=== PATIENT | female | born 1960 | race Caucasian/White ===

== ENCOUNTER 2020-03-01 07:51 | Day surgery (SDC) | payer OTHER ==
[2020-03-04] MEDS ORDERED: MONT10T PO (10:14)
[2020-03-04] MEDS ORDERED: Lisinopril-Hct1 EAC4 PO (10:14)
[2020-03-04] MEDS ORDERED: HYDR1TAB94 PO (10:14)
[2020-03-04] MEDS ORDERED: QVAR REDIHALE10.6 G2 INH (10:15)
[2020-03-04] MEDS ORDERED: LEVALBUTEROL TA15 G1 INH (10:15)
== END 2020-03-01 22:55 | disposition home or self-care (01) ==
LOC: MOI US 07:51
DX: C50.312 Malignant neoplasm of lower-inner quadrant of left female breast (principal)
CPT/HCPCS: 19285; 77065

== ENCOUNTER 2020-03-06 07:51 | Day surgery (SDC) | payer OTHER ==
[~2020-03-06] VITALS: Ht 154.9 cm; Wt 64.8 kg
[~2020-03-06 07:51] MED LIST: HYDR1TAB94 PO; LEVALBUTEROL TA15 G1 INH; Lisinopril-Hct1 EAC4 PO; MONT10T PO; QVAR REDIHALE10.6 G2 INH
--- NOTE | 2020-03-06 16:06 | NUR ---
Patient up to Ambulate independently. Gait steady. Discharge instructions reviewed with patient. Patient verbalizes understanding. Copy given to patient to take home. Patient States Post-Procedure ride home has been arranged. Discharged via wheelchair to private car for ride home. BREAST BINDER IN PLACE, NO DRESSINGS OR GAUZE OVER INCISIONS. ALL BELONINGS RETURNED TO PATIENT.
--- NOTE | 2020-03-07 10:14 | NUR ---
03/07/20 1014 Kandi Bentley VERIFICATIONS, CHART AUDITS.
== END 2020-03-06 12:00 | disposition home or self-care (01) ==
LOC: RAD 07:51 → ORSCMMR 07:51 → RAD 08:00 → ORSCMMR 09:36 → RAD 09:36 → ORSCMMR 12:00 → RAD 12:00
PROVIDERS: Surgery
PROC: 0HBU0ZZ Excision of Left Breast, Open Approach (ICD-10-PCS; principal; 2020-03-06 10:00)
PROC: 07B60ZX Excision of Left Axillary Lymphatic, Open Approach, Diagnostic (ICD-10-PCS; principal; 2020-03-06 10:00)
DX: C50.912 Malignant neoplasm of unspecified site of left female breast (principal); F41.9 Anxiety disorder, unspecified; F32.9 Major depressive disorder, single episode, unspecified; Z17.0 Estrogen receptor positive status [ER+]; Z79.51 Long term (current) use of inhaled steroids; Z79.899 Other long term (current) drug therapy; Z90.710 Acquired absence of both cervix and uterus; Z87.891 Personal history of nicotine dependence
CPT/HCPCS: 38792; 88304; 88305; 88307; 88341; 88342; A9270-GY; A9520; J0690; J1885; J2250; J2405; J3010; J7120; Q9968

== ENCOUNTER 2020-04-19 09:08 | Day surgery (SDC) | payer OTHER ==
[~2020-04-19] VITALS: Ht 154.9 cm; Wt 65.9 kg
[~2020-04-19 09:08] MED LIST changes: +BECL25NI INH; +XOPENEX HFA15 GM INH
--- NOTE | 2020-04-19 09:49 | NUR ---
History, Chart, Medications and Allergies reviewed before start of procedure. Patient confirms NPO status and agrees with scheduled surgery. Patient reports completing Chlorhexadine shower X2 prior to admission to hospital. Patient States Post-Procedure ride home has been arranged with her [id number], Zohra.
--- NOTE | 2020-04-19 10:02 | NUR ---
Lungs clear T/O to Auscultation.
--- NOTE | 2020-04-19 13:00 | NUR ---
REPORT TO NICOLA BARON PEASANT DENIES PAIN OR NAUSEA
--- NOTE | 2020-04-19 13:03 | NUR ---
report from davi laws rn. assumed care of echo. vss, alert and oriented, denies concerns, wiating for call from radiology verifying xray.
--- NOTE | 2020-04-19 13:58 | NUR ---
PT UP TO THE BATHROOM AND ABLE TO DRESS SLEF. Patient up to Ambulate independently. Gait steady. Discharge instructions reviewed with patient. Patient verbalizes understanding. Copy given to patient to take home. PT RECEIVED MEDIPORT INFORMATION. Patient States Post-Procedure ride home has been arranged. Discharged via wheelchair to private car for ride home. ALL BELONINGS RETURNED TO PATIENT.
== END 2020-04-19 23:12 | disposition home or self-care (01) ==
LOC: ORSCMMR 09:08
PROVIDERS: Surgery
PROC: B5131ZA Fluoroscopy of Right Jugular Veins using Low Osmolar Contrast, Guidance (ICD-10-PCS; principal; 2020-04-19 11:30)
PROC: 05HM33Z Insertion of Infusion Device into Right Internal Jugular Vein, Percutaneous Approach (ICD-10-PCS; principal; 2020-04-19 11:30)
DX: C50.912 Malignant neoplasm of unspecified site of left female breast (principal); I10 Essential (primary) hypertension; Z87.891 Personal history of nicotine dependence; J45.909 Unspecified asthma, uncomplicated; Z79.899 Other long term (current) drug therapy
CPT/HCPCS: 77001; A9270-GY; C1788; J0690; J1100; J1642; J1885; J2250; J2405; J2704; J3010; J7120

== ENCOUNTER 2020-04-24 15:02 | Day surgery (SDC) | payer OTHER | END 2020-04-24 22:45 | disposition home or self-care (01) | LOC: RAD 15:02 | DX: I97.89 Other postprocedural complications and disorders of the circulatory system, not elsewhere classified (principal); C50.412 Malignant neoplasm of upper-outer quadrant of left female breast | CPT/HCPCS: 36598 ==

== ENCOUNTER 2020-04-26 06:50 | Inpatient (IN) | payer OTHER ==
[~2020-04-26] VITALS: Ht 165.1 cm; Wt 56.1 kg
[2020-04-26 07:25] LABS: BASOPHILS ABSOLUTE AUTO 0.01 K/mm3 (0.00-0.23); BASOPHILS PERCENT AUTO 0 % (0-2); EOSINOPHILS ABSOLUTE AUTO 0.01 K/mm3 (0.00-0.68); EOSINOPHILS PERCENT AUTO 0 % (0-6); Hematocrit 31.2 % (33.0-51.0); Hemoglobin 10.9 g/dL (11.5-16.0); IMMATURE GRAN ABSOLUTE AUTO 0.28 K/mm3 (0.00-0.10); IMMATURE GRAN PERCENT AUTO 3 % (0-1); LYMPHOCYTES ABSOLUTE AUTO 1.39 K/mm3 (0.84-5.20); LYMPHOCYTES PERCENT AUTO 15 % (21-46); MONOCYTES ABSOLUTE AUTO 0.66 K/mm3 (0.16-1.47); MONOCYTES PERCENT AUTO 7 % (4-13); Mean Corpuscular HGB Conc 34.9 g/dL (31.5-36.5); Mean Corpuscular Volume 92 fL (80-100); Mean Platelet Volume 9.2 fL (9.1-12.4); NEUTROPHILS ABSOLUTE AUTO 6.78 K/mm3 (1.96-9.15); NEUTROPHILS PERCENT AUTO 74 % (41-73); Platelet Count 329 K/mm3 (150-400); RDW Coefficient Variation 12.1 % (11.7-14.2); RDW Standard Deviation 40.5 fL (35.1-46.3); Red Blood Cell Count 3.41 M/mm3 (3.80-5.20); White Blood Cell Count 9.13 K/mm3 (4.00-11.30)
[2020-04-26 07:47] LABS: Ethanol (Alcohol), Blood, Med <3 mg/dL
[2020-04-26] MEDS ORDERED: Ondansetron Odt8 MG MM (07:52)
[2020-04-26] MEDS ORDERED: DEXA4 PO (07:53)
[2020-04-26] MEDS ORDERED: ZYPREXA2.5 MG PO (07:53)
[2020-04-26] MEDS ORDERED: FLUOXETINE HCL20 MG PO (07:54)
[2020-04-26] MEDS ORDERED: QVAR REDIHALE10.6 G2 INH (07:55)
[2020-04-26] MEDS ORDERED: HYDHCL25 PO (07:55)
[2020-04-26 08:00] LABS: Alanine Aminotransfer (ALT/SGP 39 U/L (12-78); Albumin, Blood 3.5 g/dL (3.4-5.0); Albumin/Globulin Ratio 1.2 (0.8-1.8); Alk Phos 59 U/L (50-136); Anion Gap 15 mmol/L (6-16); Aspartate Aminotrans (AST/SGOT 23 U/L (12-37); Bilirubin, Total 0.6 mg/dL (0.1-1.0); Blood Urea Nitrogen 12 mg/dL (8-24); Bun/Creatinine Ratio 23.6 (12.0-20.0); CO2, Blood 17 mmol/L (21-32); Calcium, Blood 8.1 mg/dL (8.5-10.1); Chloride, Blood 83 mmol/L (98-108); Creatinine, Blood 0.51 mg/dL (0.40-1.00); Glomerular Filtration Rate >60 (60-); Glucose, Blood 138 mg/dL (70-99); Potassium, Blood 3.6 mmol/L (3.5-5.5); Sodium, Blood 115 mmol/L (136-145); Total Protein, Blood 6.5 g/dL (6.4-8.2)
[2020-04-26 08:28] LABS: Source, Urine Clean Catch
[2020-04-26 08:36] LABS: Bilirubin, Urine Neg (Neg); Blood, Urine 2+ (Neg); Glucose Qualitative, Urine 1+ (Neg); Ketones, Urine 2+ (Neg); Leukocyte Esterase, Urine Neg (Neg); Nitrite, Urine Neg (Neg); Protein, Urine 2+ (Neg); Specific Gravity, Urine 1.025 (1.003-1.022); Urobilinogen, Urine NORM (Normal)
[2020-04-26 08:52] LABS: Appearance, Urine Clear (Clear); Color, Urine Yellow (P-Yellow)
[2020-04-26 09:01] LABS: Red Blood Cells, Urine 0-2 /hpf (0-2); White Blood Cells, Urine 0-2 /hpf (0-5)
[2020-04-26 09:02] LABS: Bacteria Mod /hpf; Squamous Epithelial Cells Few /hpf (Few)
[2020-04-26 09:03] LABS: Amorphous Mod (0-Heavy)
[2020-04-26 09:13] LABS: U Amphetamine Screen Not Detected; U Barbituate Screen Not Detected; U Benzodiazapine Screen Not Detected; U Buprenorphine Screen Not Detected; U Cannabinoids Screen Not Detected; U Cocaine Screen Not Detected; U Methadone Screen Not Detected; U Methamphetamine Screen Not Detected; U Opiates Screen Not Detected; U Oxycodone Screen Not Detected; U Phencyclidine Screen Not Detected; U Propoxyphene Screen Not Detected
--- NOTE | 2020-04-26 11:45 | NUR ---
ADMIT PT ARRIVES TO ICU 12 AT 1115 VIA ER BED. PT TRANSFERED TO ICU BED. PT IS LETHARGIC AND UNABLE TO ANSWER QUESTIONS OR FOLLOW COMMANDS. PT MAEW, PT PULLING AT LINES/TUBES. VITAL SIGNS STABLE. PT WITH NEW MEDIPORT TO RIGHT UPPER CHEST C/D/I. MEDIPORT ACCESSED. 3% SALINE INFUSING AT 20 ML/HR AT THIS TIME. SIMMONS IN PLACE WITH YELLOW URINE OUTPUT NOTED. PT WITH MULTIPLE BRUISES R/T FALL AT HOME. PT PLACED IN SBW RESTRAINTS DUE TO PULLING AT MEDIPORT ACCESS. WILL CONTINUE TO MONITOR.
[2020-04-26 13:17] LABS: Albumin, Blood 3.4 g/dL (3.4-5.0); Blood Urea Nitrogen 12 mg/dL (8-24); Bun/Creatinine Ratio 28.2 (12.0-20.0); CO2, Blood 23 mmol/L (21-32); Calcium, Blood 8.1 mg/dL (8.5-10.1); Chloride, Blood 84 mmol/L (98-108); Creatinine, Blood 0.43 mg/dL (0.40-1.00); Glomerular Filtration Rate >60 (60-); Glucose, Blood 109 mg/dL (70-99); Phosphorus, Blood 2.6 mg/dL (2.5-4.9); Potassium, Blood 3.3 mmol/L (3.5-5.5)
[2020-04-26 13:19] LABS: Anion Gap 10 mmol/L (6-16); Sodium, Blood 117 mmol/L (136-145)
[2020-04-26 14:32] LABS: Thyroid Stimulating Hormone 0.299 uIU/mL (0.360-4.800); Uric Acid, Blood 3.9 mg/dL (2.6-6.0)
--- NOTE | 2020-04-26 15:30 | NUR ---
DR. RICHARD PHONED AND UPDATED TO PT CURRENT STATUS AND LAB RESULTS. ORDERS GIVEN TO INCREASED 3% SALINE TO 30 ML/HR. LABS ORDERED FOR 1800 AND TO BE CALLED TO DR. RICHARD BY 1900. TOD MARTINEZ AWARE-PT SPOUSE AT BEDSIDE-HE TOO WAS UPDATED TO PT CURRENT STATUS, LABS, AND PLAN OF CARE BY TOD MARTINEZ.
[2020-04-26 15:39] LABS: Albumin, Blood 3.4 g/dL (3.4-5.0); Anion Gap 11 mmol/L (6-16); Blood Urea Nitrogen 12 mg/dL (8-24); Bun/Creatinine Ratio 27.3 (12.0-20.0); CO2, Blood 20 mmol/L (21-32); Chloride, Blood 85 mmol/L (98-108); Creatinine, Blood 0.44 mg/dL (0.40-1.00); Glomerular Filtration Rate >60 (60-); Glucose, Blood 115 mg/dL (70-99); Phosphorus, Blood 2.4 mg/dL (2.5-4.9); Potassium, Blood 3.4 mmol/L (3.5-5.5); Sodium, Blood 116 mmol/L (136-145)
--- NOTE | 2020-04-26 17:32 | NUR ---
SHIFT SUMMARY NO ACUTE CHANGES THIS SHIFT. PT HAS REMAINED LETHARGIC AND IS NOT ABLE TO ANSWER ANY QUESTIONS. PT OCCASIONALLY MOANS OUT WITH CARE. PT DOES NOT FOLLOW COMMANDS. SBW RESTRAINTS REMAIN IN PLACE. MEDIPORT REMAINS ACCESSED WITH 3% SALINE INFUSING AT 30 ML/HR. SIMMONS REMAINS IN PLACE, 24 HOUR URINE COLLECTION IN PROGRESS. SIMMONS DRAINAGE BAG ON ICE. PT WITH CLEAR ORANGE URINE OUTPUT NOTED. VITAL SIGNS HAVE REMAINED STABLE. PT ON ROOM AIR. WILL CONTINUE TO MONITOR AND REPORT OFF TO ONCOMING RN.
[2020-04-26 18:24] LABS: Magnesium, Blood 1.9 mg/dL (1.6-2.4)
[2020-04-26 18:31] LABS: Phosphorus, Blood 2.4 mg/dL (2.5-4.9); Potassium, Blood 3.4 mmol/L (3.5-5.5)
--- NOTE | 2020-04-26 19:15 | NUR ---
ASSUMED CARE OF PT, BEDSIDE REPORT RECEIVED. PT IS RESTING QUIETLY ON LEFT SIDE AND APPEARS TO BE SLEEPING, DOES NOT FOLLOW COMMANDS, DOES NOT OPEN EYES TO VERBAL STIMULI, SHE IS NOTED TO ROUSE ABRUPTLY WITH AUSCULTATION OF BOWEL TONES AND PRIOR TO PALPATION, SHE DOES NOT FOLLOW COMMANDS AFTER EYES ARE OPEN. PUPILS ARE EQUAL AND SLUGGISHLY REACTIVE. LUNGS ARE CLEAR THROUGHOUT, SATS ARE MAINTAINING ON ROOM AIR, NO VISIBLE INCREASED WORK OF BREATHING, RATE TEENS AT THIS TIME. HRR, SINUS TACH NOTED ON MONITOR RATE 100-110, PRESSURES MAINTAINING, PULSES FULL, NO EDEMA IS NOTED, SKIN PWD, BRISK CAP REFILL. ABD MILDLY DISTENDED, HYPOACTIVE BOWEL TONES ARE NOTED, SOFT TO PALPATION, NO GRIMACING IS NOTED. SIMMONS IN PLACE DRAINING CLEAR YELLOW URINE TO GRAVITY, COLLECTION BAG IS ON ICE 24 HOUR URINE COLLECTION IS IN PROGRESS, TO BE COMPLETED AT 1530 TOMORROW. MEDIPORT IS ACCESSED, DRESSING CDI, SITE WNL, SMALL INCISION SUPERIOR TO PORT, HEALING IN PROGRESS. 3% SALINE INFUSING AT 30 ML/HR AND INCREASED TO 40 ML/HR DURING BEDSIDE REPORT PER ORDERS FROM DR RICHARD.
[2020-04-26 19:21] LABS: Albumin, Blood 3.3 g/dL (3.4-5.0); Blood Urea Nitrogen 12 mg/dL (8-24); Bun/Creatinine Ratio 24.3 (12.0-20.0); CO2, Blood 18 mmol/L (21-32); Calcium, Blood 7.9 mg/dL (8.5-10.1); Chloride, Blood 86 mmol/L (98-108); Creatinine, Blood 0.49 mg/dL (0.40-1.00); Glomerular Filtration Rate >60 (60-); Glucose, Blood 113 mg/dL (70-99); Phosphorus, Blood 2.5 mg/dL (2.5-4.9); Potassium, Blood 3.4 mmol/L (3.5-5.5)
[2020-04-26 19:23] LABS: Anion Gap 12 mmol/L (6-16); Sodium, Blood 116 mmol/L (136-145)
--- NOTE | 2020-04-26 21:35 | NUR ---
AGITATION PT AWAKE AND SITTING UP IN BED LEANING FORWARD TO GET SHOULDERS AND UPPER CHEST DOWN NEAR HANDS, REPEATEDLY PULLING AT CARDIAC MONITORING WIRES, IV TUBING, GOWN, SIMMONS CATHETER. DOES NOT REDIRECT AT THIS TIME, ATTEMPTED TO REASSURE PT, EXPLAINED THAT SHE IS IN THE ICU FOLLOWING A FALL AT HER SISTERS HOUSE AND THAT SHE IS SAFE THAT HER FAMILY KNOWS WHERE SHE IS. PT DOES NOT REASSURE, MUMLÓPEZ ZARATE IS NOTED WITH INTERMITTENT WELL ENUNCIATED "SHIT" AND "FUCK" BUT NO UNDERSTANDABLE WORDS BETWEEN THESE TWO , PT DOES NOT ANSWER QUESTIONS AT THIS TIME, CONTINUES TO ATTEMPT TO PULL LINES AND TUBING.
[2020-04-26 22:51] LABS: Albumin, Blood 3.4 g/dL (3.4-5.0); Anion Gap 10 mmol/L (6-16); Blood Urea Nitrogen 10 mg/dL (8-24); Bun/Creatinine Ratio 16.4 (12.0-20.0); CO2, Blood 22 mmol/L (21-32); Chloride, Blood 96 mmol/L (98-108); Creatinine, Blood 0.61 mg/dL (0.40-1.00); Glomerular Filtration Rate >60 (60-); Glucose, Blood 119 mg/dL (70-99); Phosphorus, Blood 2.9 mg/dL (2.5-4.9); Potassium, Blood 3.8 mmol/L (3.5-5.5); Sodium, Blood 128 mmol/L (136-145)
--- NOTE | 2020-04-26 22:57 | NUR ---
DR RICHARD NOTIFIED OF 2200 LAB RESULTS, 3% SALINE DC'D AT THIS TIME PER ORDERS
[2020-04-27 03:23] LABS: Hemoglobin 11.2 g/dL (11.5-16.0)
[2020-04-27 03:39] LABS: Albumin, Blood 3.6 g/dL (3.4-5.0); Anion Gap 10 mmol/L (6-16); Blood Urea Nitrogen 10 mg/dL (8-24); Bun/Creatinine Ratio 18.3 (12.0-20.0); CO2, Blood 22 mmol/L (21-32); Calcium, Blood 8.5 mg/dL (8.5-10.1); Chloride, Blood 100 mmol/L (98-108); Creatinine, Blood 0.55 mg/dL (0.40-1.00); Glomerular Filtration Rate >60 (60-); Glucose, Blood 129 mg/dL (70-99); Magnesium, Blood 2.3 mg/dL (1.6-2.4); Phosphorus, Blood 1.7 mg/dL (2.5-4.9); Sodium, Blood 132 mmol/L (136-145)
--- NOTE | 2020-04-27 06:10 | NUR ---
PT SODIUM IMPROVED THROUGHOUT NOC, IMPROVEMENT IN LETHARGY NOTED HOWEVER WHEN PT ROUSES SHE BECOMES MARKEDLY AGITATED AND IS ABLE TO CHANGE BODY POSITION ENOUGH TO PULL AT SIMMONS, MONITOR WIRES, AND IV TUBING AT TIMES IN SPITE OF BILAT WRIST RESTRAINTS, SHE DOES NOT FOLLOW DIRECTIONS, SHE HAS STARTED ANSWERING QUESTIONS WITH "YEAH" IN ADDITION TO PREVIOUSLY CHARTED WORDS SPOKEN, OTHERWISE SHE HAS BEEN NONVERBAL THROUGHOUT NOC, SHE DOES NOT REDIRECT WELL, SHE DOES NOT FOLLOW DIRECTIONS. SHE SITS UP AWAY FROM BED AND RAISES LEGS UP OVER BED RAILS FREQUENTLY AND RAPIDLY ENOUGH THAT HER HEART RATE IS NOTED TO INCREASE TO THE 150S WITH INCREASES IN AGITATION HOWEVER RETURNS TO BASELINE WITHIN 2 MINUTES OF RETURNING TO STATE OF CALM/RELAXED MOVEMENTS. SPOKE WITH HOSPITALIST JOB PUTTER UP AND TICKET PREPARER SEVERAL TIMES THIS SHIFT IN REGARDS TO PT AGITATION, ZYPREXA IM ADMIN X 1 WITH LESS THAN 1 HOUR OF IMPROVEMENT IN AGITATION, ATIVAN 1 MG IV ADMINISTERED X 3 WITH IMPROVEMENT IN AGITATION LASTING APPROXIMATELY 2 HOURS POST ADMINISTRATION, HALDOL 3 MG IV ADMINISTERED X 1 WITH NEARLY 2 HOURS IMPROVEMENT IN AGITATION.
--- NOTE | 2020-04-27 07:30 | NUR ---
ASSUMED CARE BEDSIDE REPORT RECIEVED. PT IS LAYING IN BED RESTING QUIETLY UPON ENTERING ROOM. WHEN CHECKING IV LINES, PT BECAME RESTLESS AND THRASHING AROUND IN BED. PT UNABLE TO BE REDIRECTED. PT DOES NOT ANSWER ANY QUESTIONS OR FOLLOW ANY COMMANDS. PT MOANS OUT AT TIMES. SBW RESTRAINS IN PLACE. PT WITH MEDIPORT TO RIGHT UPPER CHEST IN PLACE. KPHOS, KCL, AND D5W AT 50 ML/HR INFUSING. SIMMONS IN PLACE WITH CLEAR YELLOW URINE OUTPUT NOTED. 24 HOUR URINE COLLECTION IN PROGRESS, SIMMONS BAG ON ICE. PT WITH SCATTERED BRUISING THROUGHOUT. VITAL SIGNS STABLE, PT ON ROOM AIR. WILL CONTINUE TO MONITOR.
--- NOTE | 2020-04-27 16:45 | NUR ---
SHIFT SUMMARY NO ACUTE CHANGES THIS SHIFT. PT HAS REMAINED RESTLESS AND WITH PERIODS OF THRASHING AROUND IN BED THROUGHOUT THE DAY. PT IS ABLE TO RESPOND TO VOICE AND FOR SHORT PERIODS OF TIME THIS AFTERNOON. PT OTHERWISE REMAINS UNABLE TO BE REDIRECTED AND UNABLE TO FOLLOW COMMANDS. SBW RESTRAINTS REMAIN IN PLACE. PT VITAL SIGNS HAVE REMAINED STABLE. MEDIPORT TO RIGHT UPPER CHEST REMAINS IN PLACE WITH CLINIMIX INFUSING AT 50 ML/HR. PT STARTED ON PRECEDEX THIS AFTERNOON AT 0.4 MCG/KG/MIN WITH SOME IMPROVEMENT IN RESTFULNESS AT THIS TIME. SIMMONS REMAINS IN PLACE WITH ORANGE URINE OUTPUT NOTED. 24 HOUR URINE COLLECTION FINISHED AND SENT TO LAB. PT SPOUSE AT BEDSIDE THIS AFTERNOON. WILL CONTINUE TO MONITOR AND REPORT OFF TO ONCOMING RN.
[2020-04-27 18:37] LABS: Phosphorus, Blood 2.2 mg/dL (2.5-4.9); Potassium, Blood 3.5 mmol/L (3.5-5.5)
--- NOTE | 2020-04-27 19:00 | NUR ---
ASSUMED CARE OF PT, REPORT RECEIVED. PT IS NOTED TO BE CURRENTLY RESTING QUIETLY, RESPIRATIONS ARE EVEN AND REGULAR WITH A RATE HIGH TEENS TO 20, SATS ARE MAINTAINING ON ROOM AIR, PRECEDEX IS INFUSING AT 0.4 MCG/KG/MIN VIA LEFT AC IV ACCESS AND CLINIMIX IS INFUSING VIA MEDIPORT. PT DOES NOT ROUSE TO VERBAL AND TOUCH STIMULI INITIALLY, WILL DECREASE PRECEDEX TO 0.3 MCG/KG/MIN AND MONITOR FOR PT RESPONSE, PLAN TO CONTINUE TO TITRATE PRECEDEX DOWN PT TOLERATES. LUNGS ARE CLEAR THROUGHOUT WITH DIM BASES BILAT. HRR, SINUS ON MONITOR, RATE 70S, PRESSURES HAVE BEEN MAINTAINING STABLE, WILL CONT TO MONITOR. ABD REMAINS SOMEWHAT DISTENDED AND SOFT WITH HYPOACTIVE BOWEL TONES X 4, NO GRIMACING IS NOTED WITH PALPATION. SIMMONS CATHETER REMAINS IN PLACE DRAINING CLEAR YELLOW URINE TO GRAVITY, WILL CONT TO MONITOR. AREAS OF BRUISING CONTINUE STABLE COMPARED TO THIS RN'S PREVIOUS SHIFT.
--- NOTE | 2020-04-27 19:30 | NUR ---
SPOKE WITH PHARMACY REGARDING INCREASE IN CLINIMIX SODIUM ORDERED BY DR RICHARD. PHARMACIST STATES THAT THERE IS A SUPPLY BACKORDER AND WE ARE UNABLE TO INCREASE SODIUM CONCENTRATION IN CLINIMIX EFFECTIVELY AT THIS TIME. DR RICHARD IS NOTIFIED OF THIS AND REQUESTS PHARMACY CALL HIM ON HIS CELL PHONE RIGHT AWAY. PHARMACIST IS NOTIFIED. CURRENT CLINIMIX IS STOPPED INFUSING AT THIS TIME PER DR RICHARD.
--- NOTE | 2020-04-27 23:30 | NUR ---
MIDNOC ASSESSMENT PT ROUSES EASILY TO SPOKEN NAME, OPENS EYES WIDE AND STATES "WHERE AM I?" EXPLAINED TO PT THAT SHE IS IN THE HOSPITAL IN [place], SHE ASKS QUESTIONS REGARDING HER FAMILY AND EVENTS PRECEDING ADMISSION. SHE DENIES PAIN, DENIES NAUSEA, STATES THAT SHE IS FEELING COMFORTABLE AT THIS TIME. VERBALIZES UNDERSTANDING OF CALL LIGHT USE. WRIST RESTRAINTS ARE REMOVED AT THIS TIME AND PRECEDEX IS DECREASED TO 0.1 MCG/KG/MIN, WILL CONT TO MONITOR. BED ALARM IS ARMED AND HIGH FALL RISK PRECAUTION LIGHT IS ENSURED TO BE ON OUTSIDE OF ROOM DOOR. WILL CONT TO MONITOR.
--- NOTE | 2020-04-28 00:45 | NUR ---
ORIENTATION PT REMAINS ABLE TO STATE THAT SHE IS IN THE HOSPITAL IN [place], PRECEDEX TO STANDBY AT THIS TIME, PT VERB UNDERSTANDING. WILL CONT TO MONITOR
[2020-04-28 03:04] LABS: Hematocrit 27.9 % (33.0-51.0); Hemoglobin 9.8 g/dL (11.5-16.0)
[2020-04-28 03:20] LABS: Albumin, Blood 2.9 g/dL (3.4-5.0); Anion Gap 6 mmol/L (6-16); Blood Urea Nitrogen 13 mg/dL (8-24); Bun/Creatinine Ratio 28.9 (12.0-20.0); CO2, Blood 25 mmol/L (21-32); Calcium, Blood 8.4 mg/dL (8.5-10.1); Chloride, Blood 101 mmol/L (98-108); Creatinine, Blood 0.45 mg/dL (0.40-1.00); Glomerular Filtration Rate >60 (60-); Glucose, Blood 121 mg/dL (70-99); Magnesium, Blood 2.4 mg/dL (1.6-2.4); Phosphorus, Blood 2.4 mg/dL (2.5-4.9); Potassium, Blood 3.4 mmol/L (3.5-5.5); Sodium, Blood 132 mmol/L (136-145)
--- NOTE | 2020-04-28 05:56 | NUR ---
PT RESTS QUIETLY AND APPEARS TO SLEEP WELL THROUGHOUT SHIFT. AT MIDNOC ASSESSMENT PT ROUSED EASILY TO SPOKEN NAME, OPENED EYES WIDE AND INQUIRED REGARDING HER LOCATION, UPON LEARNING THAT SHE HAD BEEN ADMITTED TO THE HOSPITAL IN [place], SHE INQUIRES REGARDING THE EVENTS PRECEDING ADMISSION AND INQUIRES ABOUT HER FAMILY. RESTRAINTS WERE DC'D AT THAT TIME, FALL PRECAUTIONS WERE EXPLAINED TO PT AND CALL LIGHT USE WAS ENCOURAGED. SHE HAS REMAINED ORIENTED THROUGHOUT REST OF THE NOC. SHE CONTINUES TO REPOSITION HERSELF WELL IND. PRECEDEX WAS TITRATED TO OFF AND PT REMAINS CALM, COOPERATIVE, AND ORIENTED. PT'S MENTATION IMPROVEMENT WAS DISCUSSED WITH DR MARKS WELL DR RICHARD THIS SHIFT.
--- NOTE | 2020-04-28 07:54 | NUR ---
AM NOTE... ASSUMED CARE OF PT APROX 0700, PT IS A&Ox4 WHICH IS GREAT IMPROVEMENT FROM YESTERDAY PER NOC SHIFT RN. PT'S VS STABLE AT THIS TIME. L/S CLEAR T/O ON RA. NO EDEMA NOTED ON ASSESSMENT. BT PRESENT AND HYPOACTIVE ABD IS SOFT AND NONTENDER TO PALP. PT WAKES EASILY TO VERBAL STIMULI BUT IS STILL VERY SLEEPY. PT'S ZAHRA CALLED AND UPDATED ON PT'S CONDITION AND THE PLAN OF CARE. CALL LIGHT IN REACH WILL CONTINUE TO MONITOR.
--- NOTE | 2020-04-28 16:34 | NUR ---
CALLED NURSE FOR THE REPORT. WILL CALL ME BACK
--- NOTE | 2020-04-28 16:41 | NUR ---
SHIFT SUMMARY... NO ACUTE NEGATIVE CHANGES NOTED THIS SHIFT. PT'S VS HAVE BEEN STABLE. PT HAS SLEPT MOST OF THE SHIFT BUT WAKES EASILY TO VERBAL STIMULI OR LIGHT TOUCH. PT'S SON WAS AT THE BEDSIDE APROX 2 HOURS PT WAS AWAKE DURING THIS TIME. A CANCER PROGRAM CONSULTANT CONSULT WAS PLACED D/T THE PT'S CONCERNS OVER PAYING THE HOSPTIAL BILL, SHE SAID THAT HER CHEMO TREATMENTS HAVE "WIPED US OUT." REPORT CALLED TO MEDICAL FLOOR RN, ALL OF PT'S BELONGINGS PACKED AND SENT WITH THE PT.
--- NOTE | 2020-04-28 17:37 | NUR ---
PT IS AN ICU TRANSFER. PT IS 60F, AOX4. CALLS APPROPRIATELY. PT IS ON RA AND ABLE TO WALK WITH 1P ASSIST. PT IS HERE FOR HYPONATREMIA; ON SEIZURE PRECAUTIONS. PT HAD ALTERED MENTATION FOR 2 DAYS PER ICU NURSE; PT IS NOW MORE ALERT; SO SHE WAS TRANSFERRED HERE ON MEDICAL FLOOR AND POSSIBLE DC TOMMOROW. PT PMH- L BREAST CANCER, HTN. PT HAS MEDIPORT ON HER RC; INFUSING CLINIMIX. PT HAD HER FIRST CHEMO ON THE . SS CONSULT NEEDED; PT IS WORRIED ABOUT THE HOSPITAL BILL AND MIGHT NEED FINANCIAL ASSISTANCE. PT LIVES WITH AT HOME. PT ORIENTED IN THE ROOM AND CALL LIGHT WITHIN REACH.
[2020-04-28 18:27] LABS: Phosphorus, Blood 2.7 mg/dL (2.5-4.9); Potassium, Blood 3.9 mmol/L (3.5-5.5)
[2020-04-29 04:53] LABS: Hemoglobin 10.3 g/dL (11.5-16.0)
[2020-04-29 05:11] LABS: Albumin, Blood 2.9 g/dL (3.4-5.0); Anion Gap 5 mmol/L (6-16); Blood Urea Nitrogen 13 mg/dL (8-24); Bun/Creatinine Ratio 26.2 (12.0-20.0); CO2, Blood 26 mmol/L (21-32); Calcium, Blood 8.5 mg/dL (8.5-10.1); Chloride, Blood 105 mmol/L (98-108); Glomerular Filtration Rate >60 (60-); Glucose, Blood 106 mg/dL (70-99); Magnesium, Blood 2.6 mg/dL (1.6-2.4); Phosphorus, Blood 2.9 mg/dL (2.5-4.9); Potassium, Blood 3.7 mmol/L (3.5-5.5); Sodium, Blood 136 mmol/L (136-145)
--- NOTE | 2020-04-29 06:06 | NUR ---
SHIFT SUMMARY PT RESTED WELL THROUGH NIGHT. ALERT AND ORIENTED - ABLE TO MAKE NEEDS KNOWN. JOSE MANUEL BA CAME BY AND INSTRUCTED TO DC CLINIMEX AND TO ENCOURAGE PO INTAKE FOR PT. PT DID C/O CONSTANT HEADACHE - SEE EMAR FOR PAIN RELIEF. STAND BY ASSIST WITH WALKER TO BATHROOM. PT URINATED MULTIPLE TIMES, NO BM - SEE I/O'S. NO SIGNS/INDICATIONS OF SEIZURE ACTIVITY THROUGH NIGHT. PT STATES SHE IS READY TO GO HOME IF ABLE. VSS. CALL LIGHT WITHIN REACH, BED IN LOWEST POSITION. WILL CONTINUE TO MONITOR.
--- NOTE | 2020-04-29 17:06 | NUR ---
PT AWAKE DURING SHIFT REPORT THIS AM. A&O, PLEASANT AND CO-OP. PT READY TO GO HOME. ELECTROLYTES REPLACED. PER REPORT, PT WITH NEW DX OF BREAST CA; 1ST DOSE OF CHEMO ON 04/25. PT REPORTED THAT SHE IS GOING TO STOP CHEMO; UNABLE TO TOLERATE. DR BURGOS IN TO SEE PT THIS AM. D/C ORDERS PLACED. PT LATER REPORTED LOOSE STOOLS POSSIBLY R/T CHEMO. IMODIUM X1 GIVEN. PT REPORTED IT EFFECTIVE. IV TO RFA D/C'D WNL'S. MEDIPORT HEPARIN LOCKED. PT REPORTED THAT SHE IS GOING TO HAVE IT REMOVED SHE IS NOT GOING TO CONTINUE CHEMO. MEDICATIONS FAXED TO PT'S PHARMACY. D/C INSTRUCTIONS GIVEN. PT VERBALIZED UNDERSTANDING. PT'S SON HERE TO TAKE PT HOME. PT ASSISTED OUT TO CAR VIA W/C BY SHARA.
== END 2020-04-29 13:13 | disposition home or self-care (01) | DRG 643 ==
LOC: ER 06:50 → ICUW 10:06 → MEDS 04-28 16:57
PROVIDERS: Emergency Medicine; Internal Medicine Nephrology; ADMIT Internal Medicine
DX: E22.2 Syndrome of inappropriate secretion of antidiuretic hormone (principal); G92 Toxic encephalopathy; C50.912 Malignant neoplasm of unspecified site of left female breast; D64.9 Anemia, unspecified; E87.6 Hypokalemia; E83.39 Other disorders of phosphorus metabolism; E88.09 Other disorders of plasma-protein metabolism, not elsewhere classified; I12.9 Hypertensive chronic kidney disease with stage 1 through stage 4 chronic kidney disease, or unspecified chronic kidney disease; N18.2 Chronic kidney disease, stage 2 (mild); W19.XXXA Unspecified fall, initial encounter
CPT/HCPCS: 36415; 51702; 70450; 71045; 72125; 80053; 80069; 81001; 82533; 83735; 83930; 84100; 84132; 84146; 84295; 84443; 84550; 85014; 85018; 85025; 87086; 93005; 93010; 94760; 96374-59; 99285-25; A9270; A9270-GY; G0480; J1630; J1642; J1650; J1940; J2060; J3480; J7040; J7050; J7060; J7070